=== PATIENT | female | born 1990 | race Caucasian/White ===

== ENCOUNTER 2016-11-29 14:44 | Emergency (ER) | payer OTHER ==
[2016-11-29 14:59] VITALS: PULSE 81; BMI 24.7
[2016-11-29] MEDS ORDERED: ACETAMINOPHEN 500 MG TABLET (FP) PO ONE (17:19)
[2016-11-29] MEDS ORDERED: ACETAMINOPHEN 325 MG TABLET (FP) ONE (17:38)
[2016-11-29 17:47] LABS: URINE APPEARANCE CLEAR; URINE BILIRUBIN NEGATIVE (NEGATIVE); URINE BLOOD NEGATIVE (NEGATIVE); URINE COLOR COLORLESS; URINE GLUCOSE (UA) NEGATIVE (NEGATIVE); URINE KETONE NEGATIVE (NEGATIVE); URINE LEUK ESTERASE NEGATIVE (NEGATIVE); URINE NITRITE NEGATIVE (NEGATIVE); URINE PROTEIN NEGATIVE (NEGATIVE); URINE UROBILINOGEN NEGATIVE mg/dL (0.2-1.0)
--- NOTE | 2016-11-29 18:36 | PDOC ---
History of Present Illness - General Chief Complaint: Pain, Acute Stated Complaint: ABD PAIN Time Seen by Provider: 11/29/16 15:38 History Source: Patient Exam Limitations: No Limitations - History of Present Illness Travel History: No Initial Comments: 11/29/16 16:37 26 yr old female presents to the ED with complaints of right suprapubic pain worsened with movement and intercourse for the past 2 days. Patient states LMP was approximately 10-12 days ago and states his had these symptoms before approximate 4-5 months ago but resolved on its own. Patient denies irregular menses, vaginal discharge, dysuria, frequency, radiation of pain, or change in bowel movement. Patient denies fever and chills nausea Timing/Duration: reports: intermittent Quality: reports: mild, cramping Abdominal Pain Onset Location: reports: suprapubic (rt) Pain Radiation: reports: no radiation Activities at Onset: reports: none Aggravating Factors: improves with: [place], Movement Alleviating Factors: improves with: Rest Past History - Travel Traveled outside of the country in the last 30 days: No Close contact w/someone who was outside of country & ill: No - Past Medical History Allergies/Adverse Reactions: Allergies Allergy/AdvReac Type Severity Reaction Status Date / Time No Known Allergies Allergy Verified 11/29/16 14:54 Home Medications: Ambulatory Orders NK [No Known Home Medication] 11/29/16 Other medical history: denies. - Psycho/Social/Smoking Cessation Hx Suicidal Ideation: No Smoking History: Never smoked Patient Lives Alone: No Lives with/in: spouse/SO Review of Systems - Review of Systems Able to Perform ROS?: Yes Constitutional: No: Symptoms Reported HEENTM: No: Symptoms Reported Respiratory: No: Symptoms reported Cardiac (ROS): No: Symptoms Reported ABD/GI: Yes: Abdominal cramping : No: Symptoms Reported Musculoskeletal: No: Symptoms Reported Integumentary: No: Symptoms Reported Neurological: No: Symptoms reported *Physical Exam - Vital Signs Last Vital Signs Temp Pulse Resp BP Pulse Ox 98.2 F 81 17 115/73 98 11/29/16 14:54 11/29/16 14:54 11/29/16 14:54 11/29/16 14:54 11/29/16 16:05 - Physical Exam General Appearance: Yes: Nourished, Appropriately Dressed. No: Apparent Distress Female Pelvic Exam: positive: normal external exam. negative: discharge, vaginal bleeding Gastrointestinal/Abdominal: positive: Normal Bowel Sounds, Soft, Tenderness (rt suprapubic). negative: Distended, Guarding, Rebound Musculoskeletal: negative: CVA Tenderness Integumentary: positive: Normal Color, Warm, Moist Neurologic: positive: Motor Strength 5/5 (ambulatory) ED Treatment Course - ADDITIONAL ORDERS Additional order review: Laboratory Results 11/29/16 17:20 Urine Color Colorless Urine Appearance Clear Urine pH 6.0 Urine Protein Negative Urine Glucose (UA) Negative Urine Ketones Negative Urine Blood Negative Urine Nitrite Negative Urine Bilirubin Negative Urine Urobilinogen Negative Ur Leukocyte Esterase Negative Urine HCG, Qual Negative - RADIOLOGY Radiology Studies Ordered: Category Date Time Status TRANSVAGINAL ULTRASOUND US [US] Stat Ultrasound 11/29/16 17:19 Ordered - Medications Given in the ED: ED Medications Discontinued Medications Generic Name Dose Route Start Last Admin Trade Name Freq PRN Reason Stop Dose Admin Acetaminophen 975 mg 11/29/16 17:19 11/29/16 17:40 Tylenol - PO 11/29/16 17:20 975 mg ONCE ONE Administration Medical Decision Making - Medical Decision Making 11/29/16 16:39 Patient with complaints of right suprapubic pain for the past few days worsened with movement and intercourse. Patient on exam had Right suprapubic tenderness and refused pelvic exam. Patient ordered for urine urine , Tylenol and transvaginal ultrasound. 11/29/16 18:41 Laboratory Tests 11/29/16 17:20 Urine Ketones Negative Urine Nitrite Negative Urine HCG, Qual Negative Patient states feeling better after receiving Tylenol. 11/29/16 18:58 Ultrasound shows a normal-appearing endometrium with normal size ovaries and texture with arterial flow documented to both ovaries. There is no evidence of adnexal masses or Trace fluid within the cul-de-sac. patient will be to follow -up with PCP *DC/Admit/Observation/Transfer Diagnosis at time of Disposition: Cramping of right suprapubic region - Discharge Dispostion Disposition: HOME Condition at time of disposition: Improved - Referrals Referrals: Pricilla Dawn MD [Primary Care Provider] - - Patient Instructions Printed Discharge Instructions: DI for Abdominal Pain-Adult Additional Instructions: Your ultrasound and urine were negative. I do recommend to continue with Tylenol observe for fever, worsening abdominal pain, vomiting or change in bowel pattern. if the symptoms are noted you may return to the ED, or follow-up with your primary care physician.
[2016-11-29 19:10] VITALS: BP 110/71; TEMP 98
== END 2016-11-29 19:10 | disposition home or self-care (01) ==
LOC: JER 14:44
DX: R10.31 Right lower quadrant pain (principal)
CPT/HCPCS: 76830-TC; 81003; 84703; 99283-25